=== PATIENT | female | born 1945 | race Caucasian/White ===

== ENCOUNTER 2020-03-21 11:04 | Day surgery (SDC) | payer MEDICARE ==
[2020-03-14 09:53] LABS: BASOPHILS % (AUTO) 0.4 % (0-1); EOSINOPHILS # (AUTO) 0.1 X10'3 (0-0.9); EOSINOPHILS % (AUTO) 2.6 % (0-6); LYMPHOCYTES # (AUTO) 0.9 X10'3 (1.1-4.8); LYMPHOCYTES % (AUTO) 17.6 % (21-51); MEAN CORPUSCULAR HEMOGLOBIN 32.8 PG (27.0-31.0); MEAN CORPUSCULAR HGB CONC 33.3 g/dL (33.0-36.5); MEAN CORPUSCULAR VOLUME 98.6 FL (78-98); MEAN PLATELET VOLUME 6.6 FL (7.4-10.4); MONOCYTES # (AUTO) 0.5 X10'3 (0-0.9); MONOCYTES % (AUTO) 9.5 % (2-12); NEUTROPHILS # (AUTO) 3.7 X10'3 (1.8-7.7); NEUTROPHILS % (AUTO) 69.9 % (42-75); PRE OP HEMATOCRIT 40.3 % (35.0-45.0); PRE OP HEMOGLOBIN 13.4 g/dL (12.0-16.0); PRE OP PLATELET COUNT 244 X10'3 (140-440); RED BLOOD COUNT 4.09 X10'6 (4.20-5.60); RED CELL DISTRIBUTION WIDTH 13.2 % (11.5-14.5)
[2020-03-14 10:05] LABS: PRE OP PROTIME 10.3 SECONDS (9.0-12.0)
[2020-03-14 10:07] LABS: ALBUMIN 3.5 G/DL (3.4-5.0); ALBUMIN/GLOBULIN RATIO 1.1 (1.1-1.5); ALKALINE PHOSPHATASE 62 IU/L (46-116); BLOOD UREA NITROGEN 18 MG/DL (7-18); BUN/CREATININE RATIO 14.2 (6.6-38.0); CALCIUM 8.9 MG/DL (8.5-10.1); CHLORIDE 107 MMOL/L (99-107); CREATININE 1.27 MG/DL (0.40-0.90); PRE OP ALT 28 U/L (30-65); PRE OP ANION GAP 6 (8-16); PRE OP AST 25 U/L (10-37); PRE OP BILIRUB, TOTAL 0.7 MG/DL (0.0-1.0); PRE OP GLUCOSE 102 MG/DL (70-104); PRE OP SODIUM 142 MMOL/L (135-145); TOTAL CARBON DIOXIDE 28.6 MMOL/L (24-32); TOTAL PROTEIN 6.7 G/DL (6.4-8.2); eGFR 41 ML/MIN
[2020-03-21] VITALS (10 sets, daily range): BP systolic 125–143; BP diastolic 55–69
[~2020-03-21] VITALS: Ht 161.3 cm; Wt 63.0 kg
[~2020-03-21 11:04] MED LIST: BETA1TAB18 PO; BLUEBERRY PO; BUPR300T53 PO; CHOL20004 PO; CYAN100097 PO; DULA1.5P SUBCUT; ESTR-71 TD; FERR-119 PO; FLUO20TA28 PO; IBUP-1984 PO; LEVO175T2 PO; LIOT5TAB10 PO; LOSA25TA96 PO; MAGN400C PO; OMEGA 7 PO; POTASSIUM OTC PO; PSYL0.5210 PO; SIMV-42 PO; [UNRECOGNIZED DRUG - OTHER] PO; famotidine 20mg tablet PO ONE; ringers solution, lacted 1,000 ML IV SCH
[2020-03-21] MEDS ORDERED: ringers solution, lacted 1,000 ML IV SCH (12:53)
[2020-03-21] MEDS ORDERED: morphine 4 MG/ML inj SYRINge IV PRN (12:55)
[2020-03-21] MEDS ORDERED: labetalol 20mg/4ml (5mg/ml) syringe IV PRN (12:55)
[2020-03-21] MEDS ORDERED: ondansetron/PF 4mg/2ml inj IV PRN (12:55)
[2020-03-21] MEDS ORDERED: morphine 2 MG/ML inj. syringe IV PRN (12:55)
[2020-03-21] MEDS ORDERED: fentaNYL/PF 50MCG/1 ML 2ML syringe IV PRN ×2 (12:55)
[2020-03-21] MEDS ORDERED: hydrALAZINE 20mg/ml inj. IV PRN (12:55)
[2020-03-21] MEDS ORDERED: fentaNYL/PF 50MCG/1 ML 2ML syringe ONE (12:58)
[2020-03-21] MEDS ORDERED: midazolam 2 mg/2 ml injection ONE (12:58)
[2020-03-21] MEDS ORDERED: propofol inj 20 ML IV ONE (12:58)
[2020-03-21] MEDS ORDERED: LIDOcaine 2% (20mg/ml) 5ml vial ONE (12:58)
[2020-03-21] MEDS ORDERED: dexamethasone sod phosphate 4mg/ml inj. ONE (12:59)
[2020-03-21] MEDS ORDERED: ondansetron/PF 4mg/2ml inj ONE (12:59)
[2020-03-21] MEDS ORDERED: sevoflurane 250ml liquid IH ONE (13:04)
[2020-03-21] MEDS ORDERED: labetalol 20mg/4ml (5mg/ml) syringe IV ONE (13:04)
[2020-03-21] MEDS ORDERED: ketorolac trometh. 30mg/ml inj. ONE (13:34)
--- NOTE | 2020-03-21 13:43 | NUR ---
Received from OR via [facility], accompanied by Anesthesiologist DR BROWN and report given by Anesthesiologist. PT DROWSY, DENIES PAIN. Addendum: 03/21/20 at 1400 by Ami Sullivan RN Amended: Links added.
--- NOTE | 2020-03-21 15:23 | NUR ---
D/C INSTRUCTIONS GIVEN AND GONE OVER W/PT WHO VERBALIZED UNDERSTANDING, PT D/CD TO HOME VIA W/C TO PRIVATE VEHICLE W/O INCIDENT. Addendum: 03/21/20 at 1529 by Ami Sullivan RN Amended: Links added.
== END 2020-03-21 15:23 | disposition home or self-care (01) ==
LOC: PAS 11:04
PROVIDERS: ATTEND Specialist
DX: N93.9 Abnormal uterine and vaginal bleeding, unspecified (principal); N84.0 Polyp of corpus uteri; E11.22 Type 2 diabetes mellitus with diabetic chronic kidney disease; N18.3 Chronic kidney disease, stage 3 (moderate); Z79.899 Other long term (current) drug therapy; Z98.890 Other specified postprocedural states; Z89.512 Acquired absence of left leg below knee; Z89.511 Acquired absence of right leg below knee; Z88.0 Allergy status to penicillin; Z88.8 Allergy status to other drugs, medicaments and biological substances
CPT/HCPCS: 36415; 58558; 80053; 82948; 85025; 85610; 85730; 93005; A6223; J1100; J1885; J2001; J2250; J2405; J2704; J3010; J7120; 88305; A4355; A4618; A7000; J3490